=== PATIENT | male | born 1950 | race Caucasian/White ===

== ENCOUNTER 2017-08-02 08:24 | Day surgery (SDC) | payer MEDICARE ==
[~2017-08-02 08:24] MED LIST: PROPOFOL 500 MG/50 ML EMU IV ONE
[2017-08-02 10:25] VITALS: RESP 20
[2017-08-02 10:44] VITALS: BP 113/63; PULSE 54; TEMP 98; O2SAT 98
== END 2017-08-02 11:00 | disposition home or self-care (01) | DRG 951 ==
LOC: SURG 08:24
PROVIDERS: ATTEND Surgery
DX: Z12.11 Encounter for screening for malignant neoplasm of colon (principal); D12.2 Benign neoplasm of ascending colon; Z80.0 Family history of malignant neoplasm of digestive organs; D12.5 Benign neoplasm of sigmoid colon
CPT/HCPCS: J2704

== ENCOUNTER 2018-03-01 11:56 | Day surgery (SDC) | payer MEDICARE ==
[~2018-03-01 11:56] MED LIST changes: +MIDAZOLAM 2 MG/2 ML SOL ONE; -PROPOFOL 500 MG/50 ML EMU IV ONE
[2018-03-01 12:19] VITALS: O2SAT 99
[2018-03-01] MEDS: TROPICAMIDE 1% OPHTH SOL ONE ×3 (12:21→12:30)
[2018-03-01] MEDS ORDERED: KETOROLAC/HOME 0.5% SOL RIGHTEYE ONE ×3 (12:21→12:30)
[2018-03-01] MEDS: PHENYLEPHRINE HCL 10% OPHTHAL SOL ONE ×3 (12:21→12:30)
[2018-03-01] MEDS: CYCLOPENTOLATE 1% SOL ONE ×3 (12:21→12:30)
[2018-03-01] MEDS ORDERED: MOXIFLOXACIN-HOME SOL RIGHTEYE ONE ×2 (12:24→12:30)
[2018-03-01] MEDS: PROPARACAINE HCL 0.5% OPHTHALMIC SOL ONE ×2 (12:30→13:34)
[2018-03-01] MEDS ORDERED: LIDOCAINE HCL 2% MPF 10 ML SOL ONE (13:27)
[2018-03-01] MEDS ORDERED: BSS W/ 0.5 MG P.F. EPI 1 BOTTLE ONE (13:28)
[2018-03-01] MEDS ORDERED: POVIDONE IODINE 5% SOL ONE (13:28)
[2018-03-01 14:00] VITALS: BP 119/76; PULSE 56; RESP 18
== END 2018-03-01 14:23 | disposition home or self-care (01) | DRG 125 ==
LOC: SURG 11:56
PROVIDERS: ATTEND Ophthalmology
DX: H25.89 Other age-related cataract (principal)
CPT/HCPCS: J2250; A9270-GY

== ENCOUNTER 2018-03-29 11:58 | Day surgery (SDC) | payer MEDICARE ==
[2018-03-29] MEDS ORDERED: MIDAZOLAM 2 MG/2 ML SOL ONE (12:20)
[2018-03-29] MEDS: CYCLOPENTOLATE 1% SOL ONE ×3 (12:25→12:31)
[2018-03-29] MEDS: PHENYLEPHRINE HCL 10% OPHTHAL SOL ONE ×3 (12:25→12:31)
[2018-03-29] MEDS ORDERED: GATIFLOXACIN 2.5 ML DROP SOL OP ONE ×2 (12:25→12:28)
[2018-03-29] MEDS ORDERED: KETOROLAC/HOME 0.5% SOL OP ONE ×3 (12:25→12:31)
[2018-03-29] MEDS: TROPICAMIDE 1% OPHTH SOL ONE ×3 (12:25→12:31)
[2018-03-29] MEDS: PROPARACAINE HCL 0.5% OPHTHALMIC SOL ONE ×2 (12:31→13:01)
[2018-03-29 12:33] VITALS: O2SAT 98
[2018-03-29] MEDS ORDERED: BSS W/ 0.5 MG P.F. EPI 1 BOTTLE ONE (12:53)
[2018-03-29] MEDS ORDERED: POVIDONE IODINE 5% SOL ONE (12:53)
[2018-03-29] MEDS: LIDOCAINE HCL 2% MPF 10 ML SOL ONE ×2 (13:04→13:08)
[2018-03-29] MEDS ORDERED: ACETAZOLAMIDE 250 MG PO ONE (13:20)
[2018-03-29 13:29] VITALS: BP 123/75; PULSE 77; RESP 20; TEMP 97.2
== END 2018-03-29 13:40 | disposition home or self-care (01) | DRG 125 ==
LOC: SURG 11:58
PROVIDERS: ATTEND Ophthalmology
DX: H25.89 Other age-related cataract (principal)
CPT/HCPCS: J2250; A9270-GY